=== PATIENT | male | born 1975 | race Caucasian/White ===

== ENCOUNTER 2019-07-15 06:25 | Inpatient (IN) ==
--- NOTE | 2019-06-20 16:29 | PAT Medication Instructions ---
Medication Instructions Date of Service June 20, 2019 Home Medications acetaminophen [Tylenol] 325 mg PO Q6H PRN bumetanide 2 mg PO QAM lisinopril 40 mg PO QAM DO NOT take the morning of surgery bumetanide 2 mg PO QAM lisinopril 40 mg PO QAM Take morning of surgery With a small sip of water, OTHERWISE NOTHING TO EAT OR DRINK AFTER MIDNIGHT: acetaminophen [Tylenol] 325 mg PO Q6H PRN (if needed, may be taken up to four hours before surgery) Other Notes If you have any questions please call us at [phone] or [phone] or [phone] or [phone]
--- NOTE | 2019-06-21 11:04 | Anesthesiology Consultation ---
Date of Service June 21, 2019 Assessment & Plan (1) Encounter for pre-operative examination: PENDING CARDIO CLEARANCE ([facility]) TBA. Chart Review Chart Review: Acceptable Risk for Surgery (pending cardio clearance for EKG changes, TBA) and Patient seen in Pre Admission Testing Teaching & Discussion Instructed NPO after midnight before surgery, except medications with 15 cc of water. Medication instructions provided according to the PAT guidelines. History Surgery Operation Date: 07/15/19 08:25 Proposed Procedures p Right Total Knee Arthroplasty - Medardo Keller DO Height/Weight Height: 6 ft Weight: 124.5 kg Allergies Allergy/AdvReac Type Severity Reaction Status Date / Time latex Allergy Rash Verified 06/14/19 08:53 Medications Home Medications Medication Instructions Recorded Confirmed Last Taken acetaminophen [Tylenol] 325 mg PO Q6H PRN 06/14/19 06/14/19 Unknown bumetanide 2 mg PO QAM 06/14/19 06/14/19 Unknown lisinopril 40 mg PO QAM 06/14/19 06/14/19 Unknown Past Medical History Medical History History of congestive heart failure Single episode 2013 - prescribed diuretics - no issues since - no longer following with cardiology History of sleep apnea resolved since gastic bypass, but pt has not had rpt sleep study Hypertension Obesity Osteoarthritis Exercise / Class Metabolic Activity II 4-5 Yardwork/Stairs/Walk up hill (Denies CP or SOB with stairs, does daily) Past Family History Family History Mother Family history of diabetes mellitus Past Surgical History Surgical History History of ankle surgery Rt History of cardiac cath 5 years ago - [facility] [place] - SOB - no stents/angioplasty History of esophagogastroduodenoscopy (EGD) History of gastric bypass History of right inguinal hernia repair History of umbilical hernia repair History of wisdom tooth extraction Status post tendon repair Left hand Past Anesthesia History No Hx of Anesthesia Complications and No Family Hx of Anesthesia Complications History of PONV No Hx of PONV and No Hx of Motion Sickness Social History Smoking Status: Never smoker Do You Dip or Chew Tobacco: No Hx Alcohol Use: Yes Alcohol type: beer and hard liquor alcohol intake frequency: a few times a month Hx Substance Use: No substance use type: does not use Review of Systems Pt denies any recent chest pain, shortness of breath, palpitations, cough, fever or URI. Physical Exam Vital Signs BP: 159/94 (pt treated for HTN and did take AM meds -- encouraged to f/u with PCP or cardio re: HTN) P: 58bpm SPO2: 97% RA T: 98.3 F R: 16 ENMT Mouth: + chipped teeth (2 broken, L canine and R incisor); no dental restorations and no loose teeth Thyromental Distance: > or= 3.5 Finger Breadths (3.5) Mallampati Class: II Neck normal visual inspection; neck extension not limited Respiratory normal respiratory effort Auscultation: lungs clear to auscultation bilaterally Cardiovascular Rate/Rhythm: regular rate and + bradycardic Heart Sounds: no murmur Vessels: no carotid bruit Extremities: no edema Testing Laboratory Results 06/21/19 11:13 06/21/19 11:13 PT 10.3 Seconds (9.0-12.0) 06/21/19 11:13 INR 1.0 (0.9-1.1) 06/21/19 11:13 APTT 27.3 Seconds (21.0-31.0) 06/21/19 11:13 Urine Color Yellow 06/21/19 Unknown Urine Appearance Clear (Clear) 06/21/19 Unknown Urine pH 7.5 (4.5-7.5) 06/21/19 Unknown Ur Specific [place] 1.024 (1.000-1.030) 06/21/19 Unknown Urine Protein Negative (Negative) 06/21/19 Unknown Urine Glucose (UA) Negative (Negative) 06/21/19 Unknown Urine Ketones Negative (Negative) 06/21/19 Unknown Urine Nitrite Negative (Negative) 06/21/19 Unknown Ur Leukocyte Esterase Negative (Negative) 06/21/19 Unknown Blood Type A Negative 06/21/19 11:13 Antibody Screen NEGATIVE 06/21/19 11:13 Electrocardiogram Date: 06/21/19 Findings: + SB @ (59) T wave abnormality, consider lateral ischemia. Chest X-Ray Date: 06/21/19 IMPRESSION: Mild cardiac enlargement with no active disease in the chest. Echocardiogram Date: 09/29/14 EF: 55-60% Left ventricle internal cavity size normal. LV wall thickness is mildly increased. Global LV systolic function was normal. Dilatation of the aortic root. Mildly dilated left atrium. Mild mitral valve regurgitation. Stress Test Date: 09/29/14 Type: DSE Dobutamine EKG is negative for myocardial ischemia at 85%. To be mean echocardiogram is negative for wall motion abnormalities at 85%. Overall arelis ropriate improvement in left ventricular ejection fraction with dobutamine stress. No symptoms or arrhythmias were produced with exercise. Cardiac Catheterization Date: 09/29/14 Normal coronary anatomy. Normal LV function. Moderate pulmonary hypertension. Severe left ventricular end-diastolic pressure elevation. Hemodynamic suggestive of biventricular heart failure. Plan: Optimize diuresis and blood pressure control. Encourage the use of CPAP.
--- NOTE | 2019-06-21 11:57 | XRay Report ---
TWO VIEW CHEST CLINICAL HISTORY: Preoperative examination. FINDINGS: PA and lateral chest radiographs are obtained. No prior studies are available for compariso n at the time of dictation. The heart appears enlarged. The mediastinal contour is within normal li mits. The lungs and pleural spaces are clear. There is no pneumothorax. The bony thorax appears intac t. IMPRESSION: Mild cardiac enlargement with no active disease in the chest. Electronically signed by: Sabino Ramos M.D. 06/21/2019 11:56 AM
[2019-06-21 12:57] LABS: Basophils # (auto) 0.02 K/uL (0-0.2); Basophils % (auto) 0.3 %; Eosinophils % (auto) 1.3 %; Hematocrit (blood only) 44.9 % (42-52); Hemoglobin 15.5 g/dL (14.0-18.0); Immature Granulocytes # (auto) 0.01 K/uL (0.00-0.02); Immature Granulocytes % (auto) 0.1 %; Lymphocytes # (auto) 1.53 K/uL (1.2-3.4); Lymphocytes % (auto) 19.6 %; Mean Corpuscular Hemoglobin 31.6 pg (25-34); Mean Corpuscular Hgb Conc 34.5 g/dL (32-36); Mean Corpuscular Volume 91.6 fL (80-100); Mean Platelet Volume 11.6 fL (7.4-10.4); Monocytes # (auto) 0.45 K/uL (0.11-0.59); Monocytes % (auto) 5.8 %; Neutrophils % (auto) 72.9 %; Platelet Count 188 K/uL (130-400); RDW Coefficient of Variation 13.4 % (11.5-14.5); RDW Standard Deviation 44.8 fL (36.4-46.3); White Blood Count 7.81 K/uL (4.8-10.8)
[2019-06-21 13:08] LABS: BUN Creatinine Ratio 19.6 (10-20); Calcium 8.3 mg/dl (8.5-10.1); Creatinine Clr Calc Pharmacy 159.2 ml/min; Est GFR (African American) 124.8; Est GFR (Non-African American) 107.7; Potassium 3.6 mmol/L (3.5-5.1)
[2019-06-21 13:09] LABS: Appearance Urine Clear (Clear); Bilirubin Urine Negative (Negative); Blood Urine Negative (Negative); Color Urine Yellow; Glucose Urine UA Negative (Negative); Ketones Urine Negative (Negative); Leukocyte Esterase Urine Negative (Negative); Nitrite Urine Negative (Negative); Protein Urine Negative (Negative); Specific Gravity Urine 1.024 (1.000-1.030); Urobilinogen Urine Negative (Negative); pH Urine 7.5 (4.5-7.5)
[2019-06-21 13:19] LABS: Partial Thromboplastin Time 27.3 Seconds (21.0-31.0); Prothrombin Time 10.3 Seconds (9.0-12.0)
[~2019-07-15 06:25] MED LIST: ACETAMINOPHEN 500 MG TAB PO SCH; FAMOTIDINE 20 MG TAB PO SCH; GABAPENTIN 900 MG DOSE PO SCH; LR 500ML BOLUS, THEN 15ML/HR IV SCH; LR 60ML/HR IV SCH; ROPIVACAINE 0.5% HCL/PF 150 MG, BUPIVACAINE 0.5% MPF 30 ML, EPINEPHrine 30MG/30ML (OR U... INSTIL SCH; TRANEXAMIC ACID 1,000 MG **IV Pre-op IV SCH
[2019-07-15] MEDS ORDERED: TRANEXAMIC ACID 1,000 MG **IV Intra-op IV SCH (06:30)
--- NOTE | 2019-07-15 06:54 | History & Physical Bridge Note ---
Date of Service July 15, 2019 History & Physical Bridge Note I have examined the patient, reviewed the History & Physical and in the interval since the performance of the History & Physical I have noted the following changes of clinical significance: no changes noted
--- NOTE | 2019-07-15 06:54 | History & Physical Report ---
Date of Service July 15, 2019 Assessment & Plan (1) Osteoarthritis of right knee: We will proceed with a right total knee arthroplasty. Postoperatively he will be started on aspirin for DVT prophylaxis. He will be kept overnight in the hospital for postoperative medical management. He plans to use outpatient physical therapy upon discharge. Present on Admission?: Yes History of Present Illness Chief Complaint: Primary osteoarthritis of the right knee Primary Care Provider: Elian Angeles DO Medardo is a pleasant 44-year-old male who is been dealing with chronic increasing right knee pain. X-rays and clinical examination have been diagnostic for primary osteoarthritis of the right knee. After failing conservative treatment, he has elected to proceed with a right total knee arthroplasty. Allergies Allergy/AdvReac Type Severity Reaction Status Date / Time latex Allergy Rash Verified 07/06/19 09:24 Home Medications Home Medications Medication Instructions Recorded Confirmed Type acetaminophen [Tylenol] 325 mg PO Q6H PRN 06/14/19 07/06/19 History bumetanide 2 mg PO QAM 06/14/19 07/06/19 History lisinopril 40 mg PO QAM 06/14/19 07/06/19 History Past Med/Surg History Medical History History of congestive heart failure Single episode 2014 - prescribed diuretics - no issues since - no longer following with cardiology History of sleep apnea resolved since gastic bypass, but pt has not had rpt sleep study Hypertension Obesity Osteoarthritis Surgical History History of ankle surgery Rt History of [facility] - no stents/angioplasty History of esophagogastroduodenoscopy (EGD) History of gastric bypass History of right inguinal hernia repair History of umbilical hernia repair History of wisdom tooth extraction Status post tendon repair Left hand Family History Mother Family history of diabetes mellitus Social History Preferred Language: Ukrainian Communication Ability: Effective Customer Service Associate Required: No Beliefs That Will Affect Care: None Current Living Situation: Family Other Information That Helps Us Care for You: No Feels Safe at Home: Yes Safety Concerns: Feels Safe At This Time Smoking Status: Never smoker Do You Dip or Chew Tobacco: No ; Second Hand Exposure: No ; Hx Alcohol Use: Yes Alcohol type: beer and hard liquor Hx Substance Use: No Review of Systems All systems reviewed & are unremarkable except as noted in HPI & below Physical Exam Constitutional: WD/WN, vitals as above Eyes: PERRL, conjunctivae normal, anicteric sclerae ENMT: external ear and nose normal, oropharynx normal Neck: trachea midline, no thyromegaly Respiratory: normal respiratory effort Cardiovascular: RRR, no murmur, no edema Gastrointestinal (Abdomen): normal bowel sounds, soft, nontender, no hepatosplenomegaly Musculoskeletal: On physical examination of the right knee there is a trace effusion. There is near full range of motion and no evidence of instability. There is significant tenderness palpation along the medial and lateral joint yolie es and over the distal femoral condyles. Psychiatric: A+Ox3, euthymic affect Results & Data Diagnostic Findings Radiographs of the right knee demonstrate advanced osteoarthritis with joint space narrowing osteophyte formation and [id number] articulation.
[2019-07-15] MEDS ORDERED: BUPIVACAINE 0.5 % 5 MG/1 ML PF 10ML VIAL ONE (07:12)
[2019-07-15] MEDS ORDERED: BUPIVACAINE/EPINEPHRINE 0.25% 1:200,000 30 ML VIAL ONE (07:12)
[2019-07-15] MEDS ORDERED: DEXAMETHASONE SOD INJ 4 MG/ML VIAL ONE (07:13)
[2019-07-15] MEDS ORDERED: ORTHO JOINT ANESTHETIC ONE (07:14)
[2019-07-15] MEDS ORDERED: MIDAZOLAM HCL 1 MG/ML 2ML VIAL ONE ×2 (07:18→09:18)
[2019-07-15] MEDS ORDERED: LIDOCAINE HCL 2% 2 ML VIAL/AMP(20MG/ML) INFIL ONE (07:18)
[2019-07-15] MEDS ORDERED: PROPOFOL IV EMULSION 10 MG/ML 20 ML VIAL IV ONE ×2 (07:18→10:38)
[2019-07-15] MEDS ORDERED: fentaNYL citrate 100 MCG/2 ML VIAL ONE (07:19)
[2019-07-15] MEDS ORDERED: VANCOMYCIN HCL 1 GM/270 ML BAG ONE (08:00)
[2019-07-15] MEDS ORDERED: VANCOMYCIN CONSULT ACTIVE PRN (08:00)
[2019-07-15] MEDS ORDERED: CEFAZOLIN 3000MG/72.5 ML BAG IV ONE (08:46)
--- NOTE | 2019-07-15 10:55 | Operative Report ---
Post Operative Report Pre & Post Diagnosis Operation Date: 07/15/19 08:25 Pre-Op Diagnosis: RIGHT KNEE DEGENERATIVE JOINT DISEASE Post-Op Diagnosis: RIGHT KNEE DEGENERATIVE JOINT DISEASE Procedure Operation Date: 07/15/19 08:25 Actual Procedures p Right Total Knee Arthroplasty(Right) - Medardo Keller DO Surgeon Medardo Keller DO [employer] Medardo Guzmán PAC Estimated Blood Loss 20 Findings Consistent with Post-Op Diagnosis Specimens Right femoral and tibial bone Complications none Disposition Disposition: Recovery Room Indications Medardo is a pleasant 44-year-old male is been complaining of chronic increasing right knee pain. X-rays and clinical examination were diagnostic for primary osteoarthritis of the right knee. After failing conservative treatment, he elected to proceed with a right total knee arthroplasty. Description of Procedure Implants used: I used a [employer] Vanguard total knee arthroplasty system with a size 67.5 femur, 71 tibia, 31 patella, and a size 10 PS polyethylene bearing. All components were cemented in place with Palacos G cement. The patient arrived [facility] for the above procedure. There were seen in the preoperative holding area and the operative extremity was identified and signed. There were given a preoperative antibiotic, a spinal anesthetic and an adductor nerve block. There were taken back to the operating room and laid on the table in supine position. There were given basic sedation. The operative knee was then prepped and draped in sterile fashion. A timeout was done, and the patient and the operative extremity was properly identified. A midline incision was made directly over the patella. Dissection was taken down to the extensor mechanism. A subvastus arthrotomy was used. The medial retinaculum was released and the fat pad was mostly left intact. The knee was flexed and the ACL, PCL, and meniscus were removed. A drill was sent down the center of the femoral canal followed by an intramedullary itz. Off that itz a distal femoral cutting block was placed. 9 mm was resected off the distal femur at 5 of valgus. A posterior referencing AP sizing guide was then placed on the distal femur. The femur measured to be a size 67.5. 2 drill holes were placed in 3 of external rotation. A 4-in-1 cutting block was then impacted into place. Anterior posterior and chamfer cuts were then made. The posterior stabilizing box guide was then impacted into place and the box was resected for the posterior stabilizing component. The proximal tibia was then exposed. A drill was sent down the center of the tibial canal followed by an intramedullary itz. Off that itz a proximal tibial resection guide was placed. The proximal tibia was then resected. The tibia measured to be a size 71. The tibial plate was then placed in the appropriate rotation and the tibia was punched. The posterior aspect of the knee was then opened up and any additional meniscus fragments and osteophytes were removed. Trial components were then placed. I used a size 10 PS polyethylene insert. The knee was brought through a full range of motion and felt to be stable. The patella was then everted and 8 mm was resected off the posterior aspect of the patella. The patella measured to be a size 31. 3 peg holes were then drilled. A trial patella was placed. The knee was once again brought through a full range of motion and felt to be stable. Trial components were then removed. The surrounding soft tissues were injected with 100 cc of an orthopedic pain control cocktail. All components were then cemented into place with Palacos G cement. The final polyethylene insert was then snapped into place and the anterior bar was locked. Once cement was dry the tourniquet was deflated. Hemostasis was obtained. A dilute betadyne lavage was then done for 3 minutes. The joint was then irrigated with normal saline solution. The subvastus arthrotomy was then closed with #1 Vicryl suture. The skin was closed with 2-0 Vicryl, 3-0V lock suture, and john. A soft compressive dressing was placed. The patient was then transferred to a hospital bed and taken to the postanesthesia care unit in stable condition. They tolerated the procedure well. I attest to the content of the Intraoperative Record and any orders documented therein. Any exceptions are noted below.
--- NOTE | 2019-07-15 11:47 | XRay Report ---
XR knee RT 2V routine CLINICAL HISTORY: Surgical Post Op postoperative COMPARISON: None. DISCUSSION: Anatomic alignment posttotal right knee arthroplasty. Could contact between prosthetic an d underlying bone. Expected soft tissue postoperative change IMPRESSION: Anatomic alignment posttotal right knee arthroplasty. The above report was generated using voice recognition software. It may contain grammatical, syntax or spelling errors. Electronically signed by: Dayne Gimenez M.D. 07/15/2019 11:45 AM
[2019-07-15] MEDS ORDERED: NALOXONE HCL 0.4 MG/1 ML VIAL/CARP IV PRN (12:10)
[2019-07-15] MEDS ORDERED: BISACODYL 10 MG SUPP PR PRN (12:10)
[2019-07-15] MEDS ORDERED: ONDANSETRON INJ 2 MG/ML 2 ML VIAL IV PRN (12:10)
[2019-07-15] MEDS ORDERED: METOCLOPRAMIDE HCL INJ 5 MG/ML 2 ML VIAL IV PRN (12:10)
[2019-07-15] MEDS ORDERED: MAGNESIUM HYDROXIDE SUSP 30 ML UDC PO PRN (12:10)
[2019-07-15] MEDS ORDERED: HYDROmorphone INJ 0.5 MG/0.5 ML SYR IV PRN (12:10)
[2019-07-15] MEDS ORDERED: OXYCODONE HCL IR 5 MG TAB (IMMEDIATE RELEASE) PO PRN (12:10)
--- NOTE | 2019-07-15 12:16 | Anesthesiology Progress Note ---
Date of Service July 15, 2019 Anesthesia Post Procedure Vital Signs Vital Signs: Temp Pulse Pulse Resp BP Pulse Ox 07/15/19 11:55 36.5 C 69 14 137/80 96 07/15/19 11:35 64 14 134/85 99 07/15/19 11:25 60 14 129/77 100 07/15/19 11:17 37.0 C 72 16 136/76 99 07/15/19 07:39 37.0 C 66 18 170/99 H 99 Pain Intensity Right Knee: Pain Intensity: 0 Transfer of Care Handoff Completed per policy Notes Mental Status: alert / awake / arousable Patient Amnestic to Procedure: Yes Nausea / Vomiting: adequately controlled Pain: adequately controlled Airway Patency, RR, SpO2: stable & adequate BP & HR: stable & adequate Hydration State: stable & adequate Anesthetic Complications: no major complications apparent
[2019-07-15] MEDS: KETOROLAC 30 MG/ML VIAL IV SCH ×3 (13:33→23:08)
[2019-07-15] MEDS: SODIUM CHLORIDE 0.9% 1000ML 1,000 ML IV SCH (13:34)
[2019-07-15] MEDS: ACETAMINOPHEN 500 MG TAB PO SCH ×2 (16:40→21:36)
[2019-07-15] MEDS: CEFAZOLIN 2000MG 2,000 MG/15 ML SYR IV SCH (17:56)
[2019-07-15] MEDS: DOCUSATE SODIUM 100 MG CAP PO SCH (20:50)
[2019-07-15] MEDS: ASPIRIN 81 MG ECTAB PO SCH (20:50)
[2019-07-15] MEDS ORDERED: SENNA 8.6 MG TAB PO SCH (21:00)
[2019-07-16] MEDS: SODIUM CHLORIDE 0.9% 1000ML 1,000 ML IV SCH (00:56)
[2019-07-16] MEDS: CEFAZOLIN 2000MG 2,000 MG/15 ML SYR IV SCH (02:56)
[2019-07-16] MEDS: ACETAMINOPHEN 500 MG TAB PO SCH (05:49)
[2019-07-16 05:51] LABS: Hematocrit (blood only) 39.2 % (42-52); Hemoglobin 13.4 g/dL (14.0-18.0); Mean Corpuscular Hemoglobin 31.3 pg (25-34); Mean Corpuscular Hgb Conc 34.2 g/dL (32-36); Mean Corpuscular Volume 91.6 fL (80-100); Mean Platelet Volume 11.1 fL (7.4-10.4); Platelet Count 174 K/uL (130-400); RDW Coefficient of Variation 13.1 % (11.5-14.5); RDW Standard Deviation 43.4 fL (36.4-46.3); Red Blood Count 4.28 M/uL (4.7-6.1)
[2019-07-16] MEDS: KETOROLAC 30 MG/ML VIAL IV SCH ×2 (05:53→11:53)
[2019-07-16] MEDS ORDERED: VANCOMYCIN HCL 1,000 MG/270 ML BAG IV SCH (06:00)
[2019-07-16 06:17] LABS: BUN Creatinine Ratio 23.5 (10-20); Calcium 7.9 mg/dl (8.5-10.1); Creatinine Clr Calc Pharmacy 144.6 ml/min; Est GFR (Non-African American) 103.5; Potassium 3.6 mmol/L (3.5-5.1)
[2019-07-16] MEDS: DOCUSATE SODIUM 100 MG CAP PO SCH (08:19)
[2019-07-16] MEDS: ASPIRIN 81 MG ECTAB PO SCH (08:19)
--- NOTE | 2019-07-16 08:53 | Orthopedic Progress Note ---
Date of Service July 16, 2019 Assessment & Plan (1) Osteoarthritis of right knee: Overall is doing very well. Is not having much pain in the right knee. He is happy with his progress to this point. He is on aspirin for DVT prophylaxis. He is on oxycodone for pain control. He will be seen by physical therapy this morning for ambulation and range of motion exercises. He plans to be discharged home later today. He will use outpatient physical therapy. He will follow-up with orthopedics in 2 weeks. Present on Admission?: Yes Subjective Medardo was seen and examined at bedside this morning. Overall is doing very well. Is not having much pain in the right knee. He is already been up and ambulating. He has no complaints. Physical Exam Musculoskeletal: On physical examination of the right knee, the dressing is intact. There is a little bloody drainage at the very inferior aspect. He is active dorsi flexion and plantarflexion of his right ankle. Sensations intact throughout. Results & Data Vital Signs (Past 12 Hours) Vital Signs Temp Pulse Resp BP Pulse Ox 07/16/19 08:03 36.7 C 62 18 169/99 H 99 07/16/19 03:31 36.9 C 57 L 16 146/83 H 97 07/15/19 23:04 36.8 C 63 16 160/89 H 97 Laboratory Results H & H 06/21/19 07/16/19 Range/Units 11:13 05:11 Hgb 15.5 13.4 L (14.0-18.0) g/dL Hct 44.9 39.2 L (42-52) % Coagulation 06/21/19 Range/Units 11:13 INR 1.0 (0.9-1.1) Diagnostic Findings Postoperative x-rays of the right knee show the prosthesis to be in anatomic alignment without any evidence of fracture, dislocation, or loosening. PG Care Time/CCT Total # of Minutes Spent Total Time Spent with Patient: Total time spent is greater than 50% in coordination of care (as documented) at patient's floor/unit and/or counseling patient:
--- NOTE | 2019-07-16 08:54 | Discharge Summary ---
Date of Service July 16, 2019 Admission HPI Per Admitting Provider Medardo is a pleasant 44-year-old male who is been dealing with chronic increasing right knee pain. X-rays and clinical examination have been diagnostic for primary osteoarthritis of the right knee. After failing conservative treatment, he has elected to proceed with a right total knee arthroplasty. Principal Diagnosis Right total knee arthroplasty Discharge Data Allergies Allergy/AdvReac Type Severity Reaction Status Date / Time cephalexin [From Keflex] Allergy Rash Verified 07/15/19 07:35 latex Allergy Rash Verified 07/06/19 09:24 Consultations 07/15/19 12:10 Consult Case Management - Discharge Planning Routine Procedures Performed Operation Date: 07/15/19 08:25 Actual Procedures p Right Total Knee Arthroplasty(Right) - Medardo Keller DO Ordered Studies 07/15/19 05:00 US - OR guided needle placemen Routine Hospital Course (1) Osteoarthritis of right knee: On July 15, 2019 Medardo arrived at [facility] and underwent a right total knee arthroplasty without complication. He had a spinal anesthetic and a right adductor nerve block. Postoperatively he was started on aspirin for DVT prophylaxis and discharged to general orthopedic floors. His hospital course was uneventful. On postop day #1 his H&H was stable and his pain was well controlled. He was able to ambulate well with physical therapy. He was then discharged home with outpatient physical therapy. He will follow-up with orthopedics in 2 weeks. Total Time Total Time Spent Total Time Spent (In Minutes): 20 Discharge Plan Discharge Items Patient Disposition: Home - Home Health Services Reason For Visit: RIGHT KNEE DEGENERATIVE JOINT DISEASE Discharge Diagnosis: Right total knee arthroplasty Discharge Goals: Decrease discomfort and Improve function Activity: Per 'Additional Instructions' section Non-emergency contact: Surgeon Call non-emergency contact if: your wound has increased redness and your wound has increased drainage Follow-up/Referrals: Elian Angeles DO [Primary Care Provider] - Diet: Regular Addtl Provider Instructions: Activity and Therapy Recommendations: * If you are using [facility] then therapy will be provided at your home until they feel you have accomplished all of your goals. * If you are using [facility] then Physical Therapy will be provided until they feel you are ready to start Outpatient Physical Therapy. * If you are not using home therapy then Outpatient Physical Therapy should start about 3-5 days from your day of surgery. Therapy will last about 6-10 weeks * It is important not to put a pillow under your knee when you are relaxing or sleeping. It is just as important to make sure you are getting your knee perfectly straight as it is to regain your knee bend. * You were shown a series of exercises in the hospital. Do these exercises three times each day including the exercises you were shown in physical therapy. * Get up and walk several times each day. For the first four weeks, try not to stand or walk for more than one hour at a time. If you do stand or walk for more than one hour, you will not hurt anything, but your leg will likely swell. * As you feel comfortable, you may change from the walker or crutches to a cane and then to independent walking. Medications: * Narcotic You will likely be sent home from the hospital with a prescription for the narcotic pain medication that worked best throughout your stay. * Aspirin Most patients will be required to take Aspirin 81mg twice a day for 6 weeks after surgery. This is obtained [id number] and a prescription is not necessary. * Other medications may be prescribed for specific circumstances. If you have any questions, please call the office at . * Resume previous home medications unless otherwise instructed TEDs/Elastic Stockings: The white elastic stockings help limit swelling and prevent blood clots from forming in your legs.~ The more you wear them, the more they work. Wear them for six weeks. Dressing Care: If the incision is not draining then you may leave the john open to air. If there is a little bit of drainage or if the john are getting stuck on your clothing then cover the incision with a dry dressing. The john will be removed at your 2 week follow-up appointment. Showering: You may shower 5 days from the day of surgery. Let the soapy shower water run over the john and pat them dry. Do not scrub or soak the incision. Things To Watch For: * Drainage from the incision site that occurs more than one week after your surgery. * Increased redness at the incision site. * Fever above 102 degrees Fahrenheit. * Unusual chest pain or shortness of breath. * Call [facility] at with any of the above problems Follow-Up Visit: Follow-up with Dr. Keller 2-3 weeks after your day of surgery. An appointment was probably scheduled when you signed-up for surgery in the office. If you have any questions call Office Instructions: More detailed instructions as well as Frequently Asked Questions were provided in a folder by our office when you signed-up for surgery. Please review these instructions when you get home. If you have any further questions or concerns, please feel free to call the office at [phone] Prescriptions: New oxycodone 5 mg Tablet 5 mg PO Q4H PRN (Reason: pain) Qty: 40 RF: 0 aspirin [Ecotrin Low Strength] 81 mg Tablet,Delayed Release (Dr/Ec) 81 mg PO BID Qty: 84 RF: 0 Continued acetaminophen [Tylenol] 325 mg Tablet 325 mg PO Q6H PRN (Reason: Pain) RF: 0 bumetanide 2 mg Tablet 2 mg PO QAM RF: 0 lisinopril 40 mg Tablet 40 mg PO QAM RF: 0 Stand-Alone Forms: Pending Sale To [facility] Discharge Orders: Discharge Order (Routine); Ordered 07/16/19 Ordered By: Medardo Keller Admission Data Admit Date/Time: 07/15/19 11:21 Attending Provider: Medardo Keller Admit Provider: Medardo Keller Primary Care Provider: Elian Angeles Service: Surgical Services
[2019-07-16] MEDS ORDERED: BUMETANIDE 1 MG TAB PO SCH (09:00)
[2019-07-16] MEDS ORDERED: LISINOPRIL 40 MG TAB PO SCH (09:00)
[2019-07-16] MEDS ORDERED: MULTIVITAMIN TAB PO SCH (09:00)
== END 2019-07-16 12:12 | disposition home or self-care (01) | DRG 470 ==
LOC: ASU 06:25 → 3E 11:21